=== PATIENT | female | born 1995 | race African-American/Black ===

== ENCOUNTER 2016-11-17 16:16 | Emergency (ER) | payer OTHER, SELFPAY ==
[~2016-11-17] VITALS: Ht 162.6 cm; Wt 46.7 kg
[2016-11-17 16:26] VITALS: BP 107/72
[2016-11-17 17:02] LABS: APPEARANCE,URINE CLEAR; KETONES,URINE NEGATIVE (NEGATIVE); LEUKOCYTE ESTERASE ,URINE 3+ (NEGATIVE); NITRITE,URINE NEGATIVE (NEGATIVE); PH,URINE 5 (4.5-8.0); PROTEIN,URINE 3+ (NEGATIVE); UROBILINOGEN,URINE NORMAL MG/DL (0.0-1.0)
[2016-11-17 17:10] LABS: BACTERIA,URINE FEW /HPF; SQUAMOUS EPITHELIAL CELL,UR FEW /LPF (NONE/OCC)
--- NOTE | 2016-11-17 17:31 | Emergency Room Report ---
History of Present Illness General Chief Complaint: Female Urogenital Problems Source: Patient Present Illness HPI 21 YO Female presents to the ED C/O dysuria and frequency x 2 days. no fevers, chills, vaginal d/c, lesions, denies , denies N/V. PT. denies new sexual contacts and states she just had normal pap smear and STD testing 3 weeks ago. denies abdominal pain or tenderness, denies constipation, diarrhea, or rashes. pt. reports dysuria that radiates up into the lower abdomen only with urination. denies low back pain. Denies CP, Palpitations, LOC, AMS, dizziness, Changes in Vision, Sensation, paresthesias, or a sudden severe headache. Allergies: Coded Allergies: No Known Allergies (Unverified , 01/02/14) Patient History Past Medical History: see triage record Past Surgical History: none Pertinent Family History: none Last Menstrual Period: november 04 Now: No Reviewed Nursing Documentation: PMH: Agreed, PSxH: Agreed Nursing Documentation-PMH Past Medical History: No Stated History Review of Systems All Other Systems: negative except mentioned in HPI Physical Exam Vital Signs Date Time Temp Pulse Resp B/P Pulse Ox O2 Delivery O2 Flow Rate FiO2 11/17/16 16:26 97.9 73 18 107/72 98 Room Air Sp02 EP Interpretation: reviewed, normal General Appearance: no apparent distress, alert, GCS 15, non-toxic Head: normocephalic, atraumatic Eyes: bilateral eye PERRL, bilateral eye normal inspection ENT: hearing grossly normal, normal voice Neck: full range of motion Respiratory: lungs clear, normal breath sounds, speaking full sentences Cardiovascular #1: regular rate, rhythm, no edema Gastrointestinal: normal bowel sounds, non tender, soft, no guarding, no rebound Rectal: deferred Genitourinary: normal inspection, no CVA tenderness, adnexa normal, no vertebral tenderness Musculoskeletal: back normal, gait/station normal, normal range of motion Neurologic: alert, oriented x3, responsive, motor strength/tone normal, sensory intact, speech normal Psychiatric: judgement/insight normal, memory normal, mood/affect normal Skin: normal color, no rash, warm/dry, well hydrated Lymphatic: no adenopathy Medical Decision Making PA Attestation Dr. Blevins is my supervising Physician whom patient management has been discussed with. Diagnostic Impression: Primary Impression: Urinary tract infection Qualified Codes: N30.01 - Acute cystitis with hematuria ER Course 21 YO Female presents to the ED C/O dysuria and frequency x 2 days. no fevers, chills, vaginal d/c, lesions, denies , denies N/V. PT. denies new sexual contacts and states she just had normal pap smear and STD testing 3 weeks ago. denies abdominal pain or tenderness, denies constipation, diarrhea, or rashes. pt. reports dysuria that radiates up into the lower abdomen only with urination. denies low back pain. Denies CP, Palpitations, LOC, AMS, dizziness, Changes in Vision, Sensation, paresthesias, or a sudden severe headache. Ddx considered but are not limited to UTi , Pyelo, STI, Stone, Cystitis Vital signs: are WNL, pt. is afebrile H&PE are most consistent with UTI ORDERS: -Urine Hcg: negative - UA labs are attached : elevated WBC's, leuks, and bacteria present, indicates urinary infection. ED INTERVENTIONS: None required at this time. DISCHARGE: At this time pt. is stable for d/c to home. Will provide printed patient care instructions, and any necessary prescriptions. Care plan and follow up instructions have been discussed with the patient prior to discharge. Labs Test 11/17/16 16:30 Urine Color Yellow Urine Appearance Clear Urine pH 5 (4.5-8.0) Urine Specific [place] 1.020 (1.005-1.035) Urine Protein 3+ (NEGATIVE) Urine Glucose (UA) Negative (NEGATIVE) Urine Ketones Negative (NEGATIVE) Urine Occult Blood 5+ (NEGATIVE) Urine Nitrite Negative (NEGATIVE) Urine Bilirubin Negative (NEGATIVE) Urine Urobilinogen Normal MG/DL (0.0-1.0) Urine Leukocyte Esterase 3+ (NEGATIVE) Urine RBC 10-15 /HPF (0 - 2) Urine WBC 5-10 /HPF (0 - 2) Urine Squamous Epithelial Cells Few /LPF (NONE/OCC) Urine Bacteria Few /HPF (NONE) Urine HCG, Qualitative Negative Last Vital Signs Date Time Temp Pulse Resp B/P Pulse Ox O2 Delivery O2 Flow Rate FiO2 11/17/16 16:26 97.9 73 18 107/72 98 Room Air Disposition: HOME, SELF-CARE Condition: Stable Scripts Phenazopyridine Hcl* (PYRIDIUM*) 200 Mg Tablet 200 MG ORAL THREE TIMES A DAY for 3 Days, #9 TAB 0 Refills Prov: Lizz Raza 11/17/16 Nitrofurantoin Monohyd/M-Cryst* (MACROBID 100 MG*) 100 Mg Capsule 100 MG ORAL EVERY 12 HOURS for 5 Days, #10 CAP Prov: Lizz Raza 11/17/16 Patient Instructions: Urinary Tract Infection Additional Instructions: Take medications as directed. Follow up with a Primary Care Provider in 3-5 days, even if your symptoms have resolved. --Please review list of primary care clinics, if you do not already have a primary care provider Return sooner to ED if new symptoms occur, or current symptoms become worse. Pyridium will cause your urine to change color (Red/[place]), this is a normal side effect of the medication. - Please note that this Emergency Department Report was dictated using [email or web address] technology software, occasionally this can lead to erroneous entry secondary to interpretation by the dictation equipment. Lizz Raza Nov 17, 2016 17:31
[2016-11-17] MEDS ORDERED: PHENAZOPYRIDIN200 MG ORAL (17:32)
[2016-11-17] MEDS ORDERED: NITROFURANTOIN100 M2 ORAL (17:32)
[2016-11-17 17:37] VITALS: BP 107/72
== END 2016-11-17 17:37 | disposition home or self-care (01) ==
LOC: EMR 17:30
DX: N30.01 Acute cystitis with hematuria (principal)
CPT/HCPCS: 81003; 81025; 99284

== ENCOUNTER 2017-10-22 21:53 | Emergency (ER) | payer OTHER ==
[~2017-10-22] VITALS: Ht 157.5 cm; Wt 47.2 kg
[~2017-10-22 21:53] MED LIST: NITROFURANTOIN100 M2 ORAL; PHENAZOPYRIDIN200 MG ORAL
[2017-10-22] MEDS ORDERED: NKM (22:08)
--- NOTE | 2017-10-22 22:26 | Emergency Room Report ---
History of Present Illness General Chief Complaint: Vaginal Source: Patient Present Illness HPI Is a 22-year-old female with no past medical history. She presents with chief complaint of vaginal discharge. Onset this week. Has a slight odor. She is sexually active with no protection. One partner. No history of STDs. Nothing made it better. Nothing made it worse. Denies any douching. Allergies: Coded Allergies: No Known Allergies (Unverified , 01/02/14) Patient History Past Medical History: see triage record, old chart reviewed Past Surgical History: none Pertinent Family History: none Social History: Denies: smoking Last Menstrual Period: 10/15/17 Now: No : 0 Para: 0 Immunizations: other Reviewed Nursing Documentation: PMH: Agreed; PSxH: Agreed Nursing Documentation-PMH Past Medical History: No Stated History Review of Systems Eye: Denies: eye pain, blurred vision ENT: Denies: ear pain, nose congestion, throat swelling Respiratory: Denies: cough, shortness of breath Cardiovascular: Denies: chest pain, palpitations Gastrointestinal: Denies: abdominal pain, diarrhea, nausea, vomiting Genitourinary: Reports: discharge Musculoskeletal: Denies: back pain, joint pain Skin: Denies: rash Neurological: Denies: headache, numbness Endocrine: Denies: increased thirst, increased urine Hematologic/Lymphatic: Denies: easy bruising All Other Systems: negative except mentioned in HPI Physical Exam Vital Signs Date Time Temp Pulse Resp B/P (MAP) Pulse Ox O2 Delivery O2 Flow Rate FiO2 10/22/17 22:04 97.9 53 14 106/68 98 Room Air 97.9 vitals normal Sp02 EP Interpretation: reviewed, normal General Appearance: well appearing, no apparent distress, alert Head: normocephalic, atraumatic Eyes: bilateral eye PERRL, bilateral eye EOMI ENT: hearing grossly normal, normal pharynx Neck: full range of motion, supple, no meningismus Respiratory: chest non-tender, lungs clear, normal breath sounds Cardiovascular #1: regular rate, rhythm, no murmur Gastrointestinal: normal bowel sounds, non tender, no mass, no organomegaly, no bruit, non-distended Genitourinary: other - Pelvic exam done with female RN as stenciler. External exam normal. Internal exam showed whitish yellowish discharge. No cervical motion tenderness. No adnexal tenderness. Musculoskeletal: back normal, gait/station normal, normal range of motion Neurologic: alert, oriented x3 Psychiatric: mood/affect normal Skin: warm/dry Medical Decision Making Diagnostic Impression: Primary Impression: UTI (urinary tract infection) Qualified Codes: N30.00 - Acute cystitis without hematuria Additional Impression: Vaginitis Qualified Codes: N76.0 - Acute vaginitis ER Course Patient presents with a discharge. No evidence of any bacterial vaginosis or Trichomonas. I recommend yearly Pap smear. Also recommend outpatient testing for HIV, hepatitis, syphilis, and other STD. Last Vital Signs Date Time Temp Pulse Resp B/P (MAP) Pulse Ox O2 Delivery O2 Flow Rate FiO2 10/22/17 22:04 97.9 53 14 106/68 98 Room Air 97.9 Status: improved Disposition: HOME, SELF-CARE Condition: Stable Scripts Nitrofurantoin Monohyd/M-Cryst* (MACROBID 100 MG*) 100 Mg Capsule 100 MG ORAL EVERY 12 HOURS, #14 CAP Prov: ILSA LE M.D. 10/22/17 Additional Instructions: Follow-up with your family in 7 days. Return if symptom worsen. Recommend yearly Pap smear. Recommend outpatient testing for HIV, hepatitis, syphilis and other STDs. This can be done anonymously. ILSA LE M.D. Oct 22, 2017 22:25
[2017-10-22 22:43] LABS: APPEARANCE,URINE CLOUDY; BILIRUBIN, URINE NEGATIVE (NEGATIVE); COLOR,URINE PALE YELLOW; GLUCOSE, URINE (UA) NEGATIVE (NEGATIVE); KETONES,URINE NEGATIVE (NEGATIVE); LEUKOCYTE ESTERASE ,URINE 2+ (NEGATIVE); NITRITE,URINE NEGATIVE (NEGATIVE); PH,URINE 7 (4.5-8.0); PROTEIN,URINE NEGATIVE (NEGATIVE); UROBILINOGEN,URINE NORMAL MG/DL (0.0-1.0)
[2017-10-22 22:54] VITALS: BP 106/68
[2017-10-22] MEDS ORDERED: NITROFURANTOIN100 M2 ORAL (23:11)
== END 2017-10-22 22:35 | disposition home or self-care (01) ==
LOC: EMR 22:30
DX: N39.0 Urinary tract infection, site not specified (principal); N76.0 Acute vaginitis
CPT/HCPCS: 81003; 81025; 87210; 99283

== ENCOUNTER 2017-11-05 22:27 | Emergency (ER) | payer OTHER ==
[~2017-11-05] VITALS: Ht 162.6 cm; Wt 46.3 kg
[~2017-11-05 22:27] MED LIST changes: +NKM
[2017-11-05 23:02] LABS: APPEARANCE,URINE CLEAR; BILIRUBIN, URINE NEGATIVE (NEGATIVE); COLOR,URINE PALE YELLOW; GLUCOSE, URINE (UA) NEGATIVE (NEGATIVE); KETONES,URINE NEGATIVE (NEGATIVE); LEUKOCYTE ESTERASE ,URINE 3+ (NEGATIVE); NITRITE,URINE NEGATIVE (NEGATIVE); PH,URINE 6 (4.5-8.0); PROTEIN,URINE NEGATIVE (NEGATIVE); UROBILINOGEN,URINE NORMAL MG/DL (0.0-1.0)
--- NOTE | 2017-11-05 23:03 | Emergency Room Report ---
History of Present Illness General Chief Complaint: Female Urogenital Problems Source: Patient Present Illness HPI Is a 22-year-old female whom I saw about 2 weeks ago for urinary complaint. Diagnosed with UTI given prescription for Macrobid. She was doing well until 3 days ago. She had unprotected sexual intercourse and now with a whitish discharge and odor. Also with some pelvic pain. No fever chills but no nausea no vomiting. No longer having urinary complaint. Nothing made it better. Nothing made it worse. Allergies: Coded Allergies: No Known Allergies (Unverified , 11/05/17) Patient History Past Medical History: none, see triage record, old chart reviewed Past Surgical History: none Pertinent Family History: none Social History: Denies: smoking Last Menstrual Period: 10/13/2017 Now: No Immunizations: other Reviewed Nursing Documentation: PMH: Agreed; PSxH: Agreed Nursing Documentation-PMH Past Medical History: No Stated History Review of Systems Eye: Denies: eye pain, blurred vision ENT: Denies: ear pain, nose congestion, throat swelling Respiratory: Denies: cough, shortness of breath Cardiovascular: Denies: chest pain, palpitations Gastrointestinal: Denies: abdominal pain, diarrhea, nausea, vomiting Genitourinary: Reports: discharge Musculoskeletal: Denies: back pain, joint pain Skin: Denies: rash Neurological: Denies: headache, numbness Endocrine: Denies: increased thirst, increased urine Hematologic/Lymphatic: Denies: easy bruising All Other Systems: negative except mentioned in HPI Physical Exam Vital Signs Date Time Temp Pulse Resp B/P (MAP) Pulse Ox O2 Delivery O2 Flow Rate FiO2 11/05/17 22:32 98.2 63 16 104/60 98 Room Air 98.2 vitals normal Sp02 EP Interpretation: reviewed, normal General Appearance: well appearing, no apparent distress, alert Head: normocephalic, atraumatic Eyes: bilateral eye PERRL, bilateral eye EOMI ENT: hearing grossly normal, normal pharynx Neck: full range of motion, supple, no meningismus Respiratory: chest non-tender, lungs clear, normal breath sounds Cardiovascular #1: regular rate, rhythm, no murmur Gastrointestinal: normal bowel sounds, non tender, no mass, no organomegaly, no bruit, non-distended Genitourinary: other - Pelvic exam done with Delores, RN, as concrete laborer. External exam normal. Internal exam show whitish discharge. No cervical motion tenderness. Musculoskeletal: back normal, gait/station normal, normal range of motion Neurologic: alert, oriented x3 Psychiatric: mood/affect normal Skin: warm/dry Medical Decision Making Diagnostic Impression: Primary Impression: Bacterial vaginosis Additional Impression: Kiara vaginitis ER Course Patient with Dr. dumont. No evidence of ectopic. No evidence of acute UTI. We'll discharge home. Last Vital Signs Date Time Temp Pulse Resp B/P (MAP) Pulse Ox O2 Delivery O2 Flow Rate FiO2 11/05/17 22:32 98.2 63 16 104/60 98 Room Air 98.2 Status: unchanged Disposition: HOME, SELF-CARE Condition: Stable Scripts Fluconazole (FLUCONAZOLE) 100 Mg Tablet 100 MG ORAL DAILY, #1 TAB 0 Refills Prov: ILSA LE M.D. 11/05/17 Metronidazole* (FLAGYL*) 500 Mg Tablet 500 MG ORAL BID, #14 TAB Prov: ILSA LE M.D. 11/05/17 Patient Instructions: Vaginitis Additional Instructions: Follow-up with your doctor in 7 days. Return if symptom worsen. ILSA LE M.D. Nov 05, 2017 23:03
[2017-11-05] MEDS ORDERED: METRONIDAZOLE500 MG ORAL (23:46)
[2017-11-05] MEDS ORDERED: FLUCONAZOLE100 MG ORAL (23:47)
[2017-11-06] VITALS: BP 102/62
[2017-11-06 00:09] VITALS: BP 102/62
== END 2017-11-06 00:17 | disposition home or self-care (01) ==
LOC: EMR 22:40
DX: N76.0 Acute vaginitis (principal); B37.3 Candidiasis of vulva and vagina
CPT/HCPCS: 81003; 81025; 87210; 99283

== ENCOUNTER 2018-05-21 15:10 | Emergency (ER) | payer OTHER ==
[~2018-05-21] VITALS: Ht 160 cm; Wt 46.3 kg
[~2018-05-21 15:10] MED LIST changes: +FLUCONAZOLE100 MG ORAL; +METRONIDAZOLE500 MG ORAL
[2018-05-21 15:15] VITALS: BP 115/70
[2018-05-21] MEDS ORDERED: NKM (15:17)
--- NOTE | 2018-05-21 15:23 | NUR ---
ED Nurse Note: Pt came in due to heaviness in her medial chest on and off x 3 days. Pt states she has this feeling when she was a little girl. No respiratory distress. Pt is AAOx4 ,ambulates with steady gait. VSS. Mother at the bed side.
--- NOTE | 2018-05-21 15:39 | Emergency Room Report ---
History of Present Illness General Chief Complaint: General Complaint Source: Patient Present Illness HPI 22-year-old female patient presents the ER complaining of substernal chest pain for the past 3 days. Reports pain is worse with deep inspiration. Denies history of AL or heart attack. Denies history of asthma. Denies recent injury or trauma. Reports dry cough during this time. Reports no hemoptysis. States not taking medication for relief of symptoms. Reports history of similar symptoms in the past, states symptoms have been present since childhood. Reports history of dizziness and fainting episodes, denies symptoms currently. Denies history of cardiac workup or following up with primary care provider or packer inspector. Denies other aggravating or relieving factors. Denies smoking cigarettes. Denies recent travel. Denies no recent periods of immobilization. States does not take control medication. Denies calf pain. Denies neck pain. Denies recent travel. Denies drug use. Allergies: Coded Allergies: No Known Allergies (Unverified , 11/05/17) Patient History Past Medical History: see triage record Last Menstrual Period: 05/17/18 Reviewed Nursing Documentation: PMH: Agreed; PSxH: Agreed Nursing Documentation-PMH Past Medical History: No Stated History Review of Systems All Other Systems: negative except mentioned in HPI Physical Exam Vital Signs Date Time Temp Pulse Resp B/P (MAP) Pulse Ox O2 Delivery O2 Flow Rate FiO2 05/21/18 15:15 98.1 57 18 115/70 100 Room Air Sp02 EP Interpretation: reviewed, normal General Appearance: well appearing, no apparent distress, alert, GCS 15, non- toxic Head: normocephalic, atraumatic Eyes: bilateral eye normal inspection, bilateral eye PERRL ENT: hearing grossly normal, normal pharynx, no angioedema, normal voice, uvula midline, moist mucus membranes Neck: full range of motion Respiratory: lungs clear, normal breath sounds, no rhonchi, no respiratory distress, no accessory muscle use, no wheezing, speaking full sentences Cardiovascular #1: regular rate, rhythm, no edema Gastrointestinal: non tender, soft, no mass, non-distended, no guarding, no rebound Genitourinary: no CVA tenderness Musculoskeletal: back normal, digits/nails normal, gait/station normal, normal range of motion, non-tender, no calf tenderness, Praveena's Sign negative Neurologic: alert, oriented x3, responsive, motor strength/tone normal, sensory intact Psychiatric: mood/affect normal Skin: no rash Medical Decision Making PA Attestation Dr. Florez is my supervising Physician whom patient management has been discussed with. Diagnostic Impression: Primary Impression: Nonspecific chest pain ER Course Pt presents to ED c/o chest pain. DDX considered but are not limited to influenza, viral URI, pneumonia, costochondritis, pericarditis, AL, CHF, pneumothorax, PE. VITAL SIGNS are WNL, patient is afebrile. ER COURSE: Provided with pain medication and IV fluids. Lungs clear to auscultation, no wheezes, rhonci or rales. patient afebrile. Patient does not require breathing treatment at this time. CBC and CMP unremarkable Troponin negative D-dimer WNL, low suspicion for PE. UA unremarkable, urine negative Discussed results with patient. CXR negative for acute disease. EKG shows no ST elevation or afib, small right bundle branch block noted in V2. Pain reproducible, CXR and EKG negative, low suspicion for cardiac etiology of symptoms, likely MSK in nature. Advised patient to followup with PCP and discuss referral to cardiology for stress testing and further evaluation. Symptomatic treatment. drink plenty of fluids. Followup with PCP for further treatment and/or referral as needed. ER precautions given. DISCHARGE: At this time pt is stable for d/c to home. Patient is resting comfortably, in no acute distress, nontoxic appearing. Patient to take medications as instructed Will provide with patient care instructions and any necessary prescriptions. Care plan and follow-up instructions provided. Patient instructed to follow-up with primary care provider in 3 - 5 days. Patient questions asked and answered. Patient reports understanding and agreement to treatment plan. ER precautions given. Patient instructed to return to ER immediately for any new or worsening of symptoms including but not limited to increasing SOB, persistent fever, intractable vomiting. - Please note that this Emergency Department Report was dictated using [employer] iron worker helper technology software, occasionally this can lead to erroneous entry secondary to interpretation by the dictation equipment. Labs Test 05/21/18 15:45 05/21/18 17:35 White Blood Count 7.1 K/UL (4.8-10.8) Red Blood Count 4.61 M/UL (4.20-5.40) Hemoglobin 11.7 G/DL (12.0-16.0) Hematocrit 36.0 % (37.0-47.0) Mean Corpuscular Volume 78 FL (80-99) Mean Corpuscular Hemoglobin 25.3 PG (27.0-31.0) Mean Corpuscular Hemoglobin Concent 32.4 G/DL (32.0-36.0) Red Cell Distribution Width 11.7 % (11.6-14.8) Platelet Count 287 K/UL (150-450) Mean Platelet Volume 5.6 FL (6.5-10.1) Neutrophils (%) (Auto) 50.8 % (45.0-75.0) Lymphocytes (%) (Auto) 34.3 % (20.0-45.0) Monocytes (%) (Auto) 11.7 % (1.0-10.0) Eosinophils (%) (Auto) 2.2 % (0.0-3.0) Basophils (%) (Auto) 1.1 % (0.0-2.0) D-Dimer 0.23 mg/L FEU (0.00-0.49) Sodium Level 140 MMOL/L (136-145) Potassium Level 3.2 MMOL/L (3.5-5.1) Chloride Level 103 MMOL/L (98-107) Carbon Dioxide Level 29 MMOL/L (21-32) Anion Gap 8 mmol/L (5-15) Blood Urea Nitrogen 14 mg/dL (7-18) Creatinine 0.8 MG/DL (0.55-1.30) Estimat Glomerular Filtration Rate > 60 mL/min (>60) Glucose Level 78 MG/DL (74-106) Calcium Level 9.5 MG/DL (8.5-10.1) Total Bilirubin 0.3 MG/DL (0.2-1.0) Aspartate Amino Transf (AST/SGOT) 14 U/L (15-37) Alanine Aminotransferase (ALT/SGPT) 15 U/L (12-78) Alkaline Phosphatase 45 U/L (46-116) Troponin I 0.000 ng/mL (0.000-0.056) Pro-B-Type Natriuretic Peptide 12 pg/mL (0-125) Total Protein 8.1 G/DL (6.4-8.2) Albumin 4.1 G/DL (3.4-5.0) Globulin 4.0 g/dL Albumin/Globulin Ratio 1.0 (1.0-2.7) Urine Color Pale yellow Urine Appearance Clear Urine pH 7 (4.5-8.0) Urine Specific [place] 1.010 (1.005-1.035) Urine Protein Negative (NEGATIVE) Urine Glucose (UA) Negative (NEGATIVE) Urine Ketones Negative (NEGATIVE) Urine Blood 2+ (NEGATIVE) Urine Nitrite Negative (NEGATIVE) Urine Bilirubin Negative (NEGATIVE) Urine Urobilinogen Normal MG/DL (0.0-1.0) Urine Leukocyte Esterase 1+ (NEGATIVE) Urine RBC 0-2 /HPF (0 - 2) Urine WBC 2-4 /HPF (0 - 2) Urine Squamous Epithelial Cells Few /LPF (NONE/OCC) Urine Bacteria Few /HPF (NONE) Urine HCG, Qualitative Negative (NEGATIVE) EKG Diagnostic Results Rate: bradycardiac Rhythm: NSR ST Segments: no acute changes Other Impression Right bundle branch block ASA given to the pt in ED: No PA Scribe Text Jan Hurtado PA-C Rhythm Strip Diag. Results EP Interpretation: yes Rate: 53 Rhythm: NSR, no PVC's, no ectopy PA Scribe Text Jan Hurtado PA-C Chest X-Ray Diagnostic Results Chest X-Ray Diagnostic Results : Chest X-Ray Ordered: Yes # of Views/Limited/Complete: 1 View Indication: Chest Pain EP Interpretation: Yes PA Xray: Interpretation reviewed, by supervising MD, and agrees with findings. Interpretation: no consolidation, no effusion, no pneumothorax, no acute cardiopulmonary disease Impression: No acute disease PA Scribe Text Jan Hurtado PA-C Last Vital Signs Date Time Temp Pulse Resp B/P (MAP) Pulse Ox O2 Delivery O2 Flow Rate FiO2 05/21/18 15:23 57 18 Room Air 05/21/18 15:15 98.1 115/70 100 Status: improved Disposition: HOME, SELF-CARE Condition: Stable Scripts Ibuprofen* (MOTRIN*) 600 Mg Tablet 600 MG ORAL Q8H PRN for For Pain, #30 TAB 0 Refills Prov: Sd Hurtado 05/21/18 Patient Instructions: Nonspecific Chest Pain, [id number] Additional Instructions: Followup with primary care provider in 3 -5 days. Follow-up with packer inspector discussed need for cardiac stress testing and further evaluation and treatment. Take medications as directed. Take Tylenol or Motrin for pain symptoms. Patient questions asked and answered. ER precautions given, patient instructed to return to ER immediately for any new or worsening of symptoms. Sd Hurtado May 21, 2018 15:39
[2018-05-21] MEDS ORDERED: Acetaminophen 500mg (ES) tab ORAL ONE (15:45)
--- NOTE | 2018-05-21 15:52 | NUR ---
ED Nurse Note: Blood specimen collected and sent.
--- NOTE | 2018-05-21 16:00 | NUR ---
Note selena in EDM - 05/21/18 at 1745 by BETSY ED Nurse Note: Pt unable to giove urine sample. Will try again later.
[2018-05-21 16:35] LABS: BASOPHILS % (AUTO) 1.1 % (0.0-2.0); EOSINOPHILS % (AUTO) 2.2 % (0.0-3.0); HEMOGLOBIN 11.7 G/DL (12.0-16.0); LYMPHOCYTES % (AUTO) 34.3 % (20.0-45.0); MEAN CORPUSCULAR VOLUME 78 FL (80-99); MONOCYTES % (AUTO) 11.7 % (1.0-10.0); NEUTROPHILS % (AUTO) 50.8 % (45.0-75.0); PLATELET COUNT 287 K/UL (150-450); RED BLOOD COUNT 4.61 M/UL (4.20-5.40); RED CELL DISTRIBUTION WIDTH 11.7 % (11.6-14.8); WHITE BLOOD COUNT 7.1 K/UL (4.8-10.8)
--- NOTE | 2018-05-21 16:35 | Diagnostic Imaging Report ---
Indication: Chest pain Technique: One view of the chest Comparison: 01/02/2014 Findings: Lungs and pleural spaces are clear. Heart size is normal . No significant interim change Impression: No acute process
[2018-05-21 16:46] LABS: ANION GAP 8 mmol/L (5-15); BLOOD UREA NITROGEN 14 mg/dL (7-18); CALCIUM 9.5 MG/DL (8.5-10.1); CARBON DIOXIDE 29 MMOL/L (21-32); CHLORIDE 103 MMOL/L (98-107); CREATININE 0.8 MG/DL (0.55-1.30); POTASSIUM 3.2 MMOL/L (3.5-5.1); SODIUM 140 MMOL/L (136-145)
[2018-05-21 16:55] LABS: ALANINE AMINOTRANSFERASE 15 U/L (12-78); ALBUMIN 4.1 G/DL (3.4-5.0); ALKALINE PHOSPHATASE 45 U/L (46-116); ASPARTATE AMINO TRANSFERASE 14 U/L (15-37); BILIRUBIN,TOTAL 0.3 MG/DL (0.2-1.0)
--- NOTE | 2018-05-21 17:15 | NUR ---
ED Nurse Note: Urine specimen sent.
--- NOTE | 2018-05-21 17:44 | NUR ---
Mendoza walters in EDM - 05/21/18 at 1745 by BETSY ED Nurse Note: Pt still unable to provide urine at this time.
[2018-05-21 18:13] LABS: APPEARANCE,URINE CLEAR; BILIRUBIN, URINE NEGATIVE (NEGATIVE); COLOR,URINE PALE YELLOW; GLUCOSE, URINE (UA) NEGATIVE (NEGATIVE); KETONES,URINE NEGATIVE (NEGATIVE); LEUKOCYTE ESTERASE ,URINE 1+ (NEGATIVE); NITRITE,URINE NEGATIVE (NEGATIVE); PH,URINE 7 (4.5-8.0); PROTEIN,URINE NEGATIVE (NEGATIVE); UROBILINOGEN,URINE NORMAL MG/DL (0.0-1.0)
[2018-05-21] MEDS ORDERED: IBUPROFEN600 MG ORAL (18:26)
[2018-05-21 18:48] VITALS: BP 122/88
--- NOTE | 2018-05-21 18:48 | NUR ---
ED Nurse Note: Pt cleared by Health Care Provider for discharge. DC instructions/prescriptions given and explained to pt and verbalized understanding of teachings. All medical devices such as ID band/IV removed. Pt AAO x4, ambulatory and left with all personal belongings. Pt left with her family member.
--- NOTE | 2018-05-24 16:19 | Cardiology Report ---
APPROVED REPORT EKG Measurement Heart [id number] Sinus bradycardia Incomplete RBBB Nonspecific T wave abnormality Abnormal ECG
== END 2018-05-21 18:48 | disposition home or self-care (01) ==
LOC: EMR 17:06
DX: R07.9 Chest pain, unspecified (principal)
CPT/HCPCS: 36415; 71045; 80053; 81003; 81025; 83880; 84484; 85025; 85379; 93005; 96360; 99284

== ENCOUNTER 2019-05-21 05:42 | Emergency (ER) | payer OTHER ==
[~2019-05-21] VITALS: Ht 157.5 cm; Wt 46.7 kg
[~2019-05-21 05:42] MED LIST changes: +IBUPROFEN600 MG ORAL
--- NOTE | 2019-05-21 05:58 | NUR ---
ED Nurse Note: pt presents to ED c/o throat tightness and chest "heaviness" that started earlier this morning. pt also reports abd px and N/V. pt states that she is "paranoid" because she shared a drink with a stranger and is worried about kris something
[2019-05-21 06:01] VITALS: BP 112/76
--- NOTE | 2019-05-21 06:09 | Emergency Room Report ---
History of Present Illness General Chief Complaint: General Complaint Source: Patient Present Illness [facility] This a 23-year-old female with no past medical history. She presents with chief complaint of sore throat and palpitation. Onset was acute and occurred about an hour prior to arrival. She says she felt like her throat closing off. She also felt her heart beating fast. She then freaked out and thought that she may have caught something from drinking from a cup that belonged to someone else. She denies any fever chills but no nausea no vomiting. No fever chills but nothing made it better. Nothing made it worse. Denies any other complaint. Allergies: Coded Allergies: No Known Allergies (Unverified , 11/05/17) Patient History Past Medical History: see triage record, old chart reviewed Past Surgical History: none Pertinent Family History: none Social History: Denies: smoking Last Menstrual Period: 05/15/19 Now: No : 0 Para: 0 Immunizations: other Reviewed Nursing Documentation: PMH: Agreed; PSxH: Agreed Nursing Documentation-PMH Past Medical History: No History, Except For Hx Asthma: Yes Review of Systems Eye: Denies: eye pain, blurred vision ENT: Denies: ear pain, nose congestion, throat swelling Respiratory: Denies: cough, shortness of breath Cardiovascular: Reports: palpitations; Denies: chest pain Gastrointestinal: Denies: abdominal pain, diarrhea, nausea, vomiting Musculoskeletal: Denies: back pain, joint pain Skin: Denies: rash Neurological: Denies: headache, numbness Endocrine: Denies: increased thirst, increased urine Hematologic/Lymphatic: Denies: easy bruising All Other Systems: negative except mentioned in HPI Physical Exam Vital Signs Date Time Temp Pulse Resp B/P (MAP) Pulse Ox O2 Delivery O2 Flow Rate FiO2 05/21/19 05:48 98.2 63 16 112/76 (88) 99 Room Air Vitals normal Sp02 EP Interpretation: reviewed, normal General Appearance: well appearing, no apparent distress, alert Head: normocephalic, atraumatic Eyes: bilateral eye PERRL, bilateral eye EOMI ENT: hearing grossly normal, normal pharynx Neck: full range of motion, supple, no meningismus Respiratory: chest non-tender, lungs clear, normal breath sounds Cardiovascular #1: regular rate, rhythm, no murmur Gastrointestinal: normal bowel sounds, non tender, no mass, no organomegaly, no bruit, non-distended Musculoskeletal: back normal, normal range of motion, gait/station normal Psychiatric: mood/affect normal Medical Decision Making Diagnostic Impression: Primary Impression: Chest pain Qualified Codes: R07.9 - Chest pain, unspecified ER Course Patient with symptoms of throat closing and chest pressure and palpitation. I think this is more anxiety related. She looks well. EKG normal. Patient will be discharged with reassurance. Last Vital Signs Date Time Temp Pulse Resp B/P (MAP) Pulse Ox O2 Delivery O2 Flow Rate FiO2 05/21/19 06:01 63 16 Room Air 05/21/19 06:01 98.2 112/76 99 Status: improved Disposition: HOME, SELF-CARE Condition: Stable Additional Instructions: Follow-up with your doctor in 7 days. Return if symptoms worsen. Leonides Vaca MD May 21, 2019 06:09
[2019-05-21 06:15] VITALS: BP 112/76
--- NOTE | 2019-05-21 06:15 | NUR ---
ED Nurse Note: Pt cleared by health care Provider for discharge. DC instructions were given and explained to pt and verbalized understanding of teachings. All medical devices such as ID band removed. Pt is AAO x4, ambulatory and left with all personal belongings.
== END 2019-05-21 06:15 | disposition home or self-care (01) ==
LOC: EMR 06:10
DX: R07.9 Chest pain, unspecified (principal); J45.909 Unspecified asthma, uncomplicated
CPT/HCPCS: 93005; 99283

== ENCOUNTER 2019-10-02 11:10 | Emergency (ER) | payer OTHER ==
[~2019-10-02] VITALS: Ht 160 cm; Wt 46.3 kg
[2019-10-02 11:22] VITALS: BP 111/71
--- NOTE | 2019-10-02 11:22 | NUR ---
ED Nurse Note: Patient walked in to ED from home c/o nausea x1 month. Pt also reports missed menstrual period, feeling lethargic and pain during intercouse. LMP was 08/23/19. No SOB. VSS.
--- NOTE | 2019-10-02 11:30 | NUR ---
ED Nurse Note: Urine sent to lab.
--- NOTE | 2019-10-02 11:35 | Emergency Room Report ---
History of Present Illness General Chief Complaint: Female Urogenital Problems Source: Patient Present Illness HPI 24-year-old female no past medical history no surgical history presents with dysuria x4 days, she initially had a burning sensation when urinating resolved now she has burning with sexual intercourse, she denies any new lesions, no vaginal discharge she denies any current pain no fevers or chills, no known aggravating relieving factors severity is mild, intermittent Allergies: Coded Allergies: No Known Allergies (Unverified , 11/05/17) COVID-19 Screening Contact w/high risk pt: No Recent Travel to affected area: No Experienced COVID-19 symptoms?: No COVID-19 Testing performed NURSERY NURSE: No Patient History Past Medical History: see triage record Last Menstrual Period: 08/23/19 : 0 Reviewed Nursing Documentation: PMH: Agreed; PSxH: Agreed Nursing Documentation-PMH Past Medical History: No Stated History Hx Asthma: Yes Review of Systems All Other Systems: negative except mentioned in HPI Physical Exam Vital Signs Date Time Temp Pulse Resp B/P (MAP) Pulse Ox O2 Delivery O2 Flow Rate FiO2 10/02/19 11:15 98.4 70 18 111/71 (84) 97 Room Air General Appearance: well appearing, no apparent distress Head: normocephalic, atraumatic ENT: hearing grossly normal, normal voice Neck: full range of motion, supple Respiratory: no respiratory distress, speaking full sentences Gastrointestinal: non tender, soft Genitourinary: no CVA tenderness Neurologic: alert, normal gait Psychiatric: mood/affect normal Skin: no rash Medical Decision Making Diagnostic Impression: Primary Impression: Dysuria Additional Impression: UTI (urinary tract infection) Qualified Codes: N30.00 - Acute cystitis without hematuria ER Course 24-year-old female presents with dysuria is dyspareunia patient denies any pain during sex however she states that she has a burning sensation she also is a burning sensation when she urinates differential diagnosis includes UTI she also states she missed a period. Patient opted not to have a vaginal exam. She wants us see what the urine shows as well as gonorrhea chlamydia Patient with UTI, will start Keflex, strict return cautions discussed, patient will be notified if gonorrhea including results are positive Laboratory Tests Test 10/02/19 11:25 Urine Color Pale yellow Urine Appearance Clear Urine pH 5 (4.5-8.0) Urine Specific [place] 1.020 (1.005-1.035) Urine Protein 1+ (NEGATIVE) H Urine Glucose (UA) Negative (NEGATIVE) Urine Ketones Negative (NEGATIVE) Urine Blood 1+ (NEGATIVE) H Urine Nitrite Negative (NEGATIVE) Urine Bilirubin Negative (NEGATIVE) Urine Urobilinogen Normal MG/DL (0.0-1.0) Urine Leukocyte Esterase 3+ (NEGATIVE) H Urine RBC 2-4 /HPF (0 - 2) H Urine WBC 5-10 /HPF (0 - 2) H Urine Squamous Epithelial Cells Moderate /LPF (NONE/OCC) H Urine Bacteria Moderate /HPF (NONE) H Urine Mucus Few /LPF (NONE/OCC) H Urine HCG, Qualitative Negative (NEGATIVE) Chlamydia trachomatis RNA Pending Neisseria gonorrhoeae RNA Pending Last Vital Signs Date Time Temp Pulse Resp B/P (MAP) Pulse Ox O2 Delivery O2 Flow Rate FiO2 10/02/19 11:15 98.4 70 18 111/71 (84) 97 Room Air Disposition: HOME, SELF-CARE Condition: Stable Scripts Cephalexin* (KEFLEX*) 500 Mg Tablet 500 MG ORAL EVERY 6 HOURS, #28 CAP Prov: Troy Bower MD 10/02/19 Referrals: [facility] Patient Instructions: Urinary Tract Infection Additional Instructions: The patient was provided with discharge instructions, notified to follow-up with a primary care doctor and or specialist in the next 24-48 hours, and to return to the ED if they have worsening of their symptoms. Please note that this report is being documented using [employer] technology. This can lead to erroneous entry secondary to incorrect interpretation by the dictating instrument. Troy Bower MD Oct 02, 2019 11:35
[2019-10-02 11:45] LABS: APPEARANCE,URINE CLEAR; BILIRUBIN, URINE NEGATIVE (NEGATIVE); COLOR,URINE PALE YELLOW; GLUCOSE, URINE (UA) NEGATIVE (NEGATIVE); KETONES,URINE NEGATIVE (NEGATIVE); LEUKOCYTE ESTERASE ,URINE 3+ (NEGATIVE); NITRITE,URINE NEGATIVE (NEGATIVE); PH,URINE 5 (4.5-8.0); PROTEIN,URINE 1+ (NEGATIVE); UROBILINOGEN,URINE NORMAL MG/DL (0.0-1.0)
[2019-10-02] MEDS ORDERED: CEPHALEXIN500 M1 ORAL (12:01)
[2019-10-02 12:03] VITALS: BP 120/75
--- NOTE | 2019-10-02 12:03 | NUR ---
ER DISCHARGE NOTE: Patient is cleared to be discharged per ERMD, pt is aox4, on room air, with stable vital signs. pt was given dc and prescription instructions, pt was able to verbalize understanding, pt id band removed without complications. pt is able to ambulate with steady gait. pt took all belongings.
== END 2019-10-02 12:03 | disposition home or self-care (01) ==
LOC: EMR 12:00
DX: N30.00 Acute cystitis without hematuria (principal); R30.0 Dysuria
CPT/HCPCS: 81003; 81025; 87086; 87491; 87590; 99283

== ENCOUNTER 2019-11-18 15:32 | Emergency (ER) | payer OTHER ==
[~2019-11-18] VITALS: Ht 160 cm; Wt 46.3 kg
[~2019-11-18 15:32] MED LIST changes: +CEPHALEXIN500 M1 ORAL
--- NOTE | 2019-11-18 15:49 | NUR ---
ED Nurse Note: Pt ambulated to ED d/t fatigue and vomiting, vomited x 3 today, going on since october per pt. Per pt, she was been diagnosed with UTI and was taking keflex as her rx and then she started feeling the symptoms since the course of tx. LMP September. Pt is AOx4, VSS, on RA. afebrile on triage.
[2019-11-18 15:50] VITALS: BP 116/72
[2019-11-18] MEDS ORDERED: Ketorolac 30mg Inj IV ONE (16:15)
--- NOTE | 2019-11-18 16:35 | NUR ---
ED Nurse Note:blood and urine sent to labs, pt. received IV fluids and meds
[2019-11-18 16:56] LABS: APPEARANCE,URINE SLIGHTLY CLOUDY; BILIRUBIN, URINE NEGATIVE (NEGATIVE); COLOR,URINE AMBER; GLUCOSE, URINE (UA) NEGATIVE (NEGATIVE); KETONES,URINE 1+ (NEGATIVE); LEUKOCYTE ESTERASE ,URINE 1+ (NEGATIVE); NITRITE,URINE NEGATIVE (NEGATIVE); PH,URINE 5 (4.5-8.0); PROTEIN,URINE 1+ (NEGATIVE); UROBILINOGEN,URINE NORMAL MG/DL (0.0-1.0)
[2019-11-18 17:05] LABS: BASOPHILS % (AUTO) 1.5 % (0.0-2.0); HEMOGLOBIN 11.6 G/DL (12.0-16.0); LYMPHOCYTES % (AUTO) 23.6 % (20.0-45.0); MEAN CORPUSCULAR VOLUME 78 FL (80-99); MONOCYTES % (AUTO) 7.1 % (1.0-10.0); NEUTROPHILS % (AUTO) 66.8 % (45.0-75.0); PLATELET COUNT 254 K/UL (150-450); RED BLOOD COUNT 4.51 M/UL (4.20-5.40); WHITE BLOOD COUNT 6.4 K/UL (4.8-10.8)
[2019-11-18 17:07] LABS: ANION GAP 9 mmol/L (5-15); BLOOD UREA NITROGEN 10 mg/dL (7-18); CALCIUM 9.8 MG/DL (8.5-10.1); CARBON DIOXIDE 26 MMOL/L (21-32); CHLORIDE 100 MMOL/L (98-107); CREATININE 0.8 MG/DL (0.55-1.30); POTASSIUM 3.5 MMOL/L (3.5-5.1); SODIUM 135 MMOL/L (136-145)
[2019-11-18 17:13] LABS: ALANINE AMINOTRANSFERASE 17 U/L (12-78); ALBUMIN 4.2 G/DL (3.4-5.0); ALKALINE PHOSPHATASE 26 U/L (46-116); ASPARTATE AMINO TRANSFERASE 14 U/L (15-37); BILIRUBIN,TOTAL 0.5 MG/DL (0.2-1.0)
--- NOTE | 2019-11-18 18:05 | NUR ---
ED Nurse Note:U/S being done in the room
--- NOTE | 2019-11-18 18:39 | Diagnostic Imaging Report ---
EXAM: US First Trimester , Transabdominal and Transvaginal CLINICAL HISTORY: PAIN TECHNIQUE: Real-time transabdominal and transvaginal obstetrical ultrasound of the maternal pelvis and a first trimester with image documentation. Transvaginal imaging was used for better evaluation of the fetus and adnexa. COMPARISON: None. FINDINGS: Gestation: Single viable intrauterine gestation is noted corresponding to a gestational age of 10 weeks 6 days. heart rate is 157 bpm. Placenta/amniotic fluid: Cannot be adequately evaluated due to the early gestational age. Uterus/cervix: Cervix measures 3.1 cm and is closed. Ovaries are not visualized due to bowel gas. No myometrial mass. Ovaries: See above. Free fluid: No free fluid. IMPRESSION: 1. Single viable intrauterine gestation corresponding to a gestational age of 10 weeks 6 days. 2. heart rate is 157 bpm. 3. Cervix is closed. 4. No free fluid.
--- NOTE | 2019-11-18 18:44 | Diagnostic Imaging Report ---
EXAM: US , Transvaginal CLINICAL HISTORY: PAIN TECHNIQUE: Real-time transvaginal obstetrical ultrasound of the maternal pelvis and a first trimester with image documentation. Transvaginal imaging was used for better evaluation of the fetus and adnexa. COMPARISON: None. FINDINGS: Gestation: Single viable intrauterine gestation is noted corresponding to gestational age of 10 weeks 6 days. heart rate is 157 bpm. Placenta/amniotic fluid: Cannot be adequately evaluated due to the early gestational age. Uterus/cervix: Cervix measures 3.1 cm and is closed. The uterus measures 11.3 x 6.8 x 8.3 cm in extent. No myometrial mass. Ovaries: Neither ovary is visualized due to bowel gas. No mass. Free fluid: No free fluid. IMPRESSION: 1. Single viable intrauterine gestation corresponding to a gestational age of 10 weeks 6 days. 2. heart rate is 157 bpm. 3. Cervix is closed. 4. No free fluid. 5. Neither ovary is visualized due to bowel gas.
--- NOTE | 2019-11-18 18:46 | Emergency Room Report ---
History of Present Illness General Chief Complaint: General Complaint Source: Patient Present Illness HPI 24-year-old female with no known significant past medical history here complaining of intermittent nausea and vomiting for the past 2 months. Patient was seen [facility] end of September 2019 and was given Keflex for UTI however patient reported that after she took 3 doses she stopped taking it because she felt very nauseated and started vomiting. Patient reports that she stopped taking the antibiotic October 05 did not have any nausea vomiting point other 2 weeks and her nausea and vomiting started on October 20. Reports that her symptoms are due to being overly medicated as she reports that she still feels the medication in her mouth when she throws up. Denies any diarrhea and abdominal pain. Denies any vaginal bleeding spotting or UTI symptoms. Reports her last menstrual period was September 21, 2019 patient is sexually active. Patient does not take any control and does not use any protection. Has not taken medication for symptom relief. Denies any weight loss and history of abdominal surgery. Denies fever and chills. Denies tobacco smoke, alcohol use , marijuana use, and other drug use. Allergies: Coded Allergies: No Known Allergies (Unverified , 11/05/17) COVID-19 Screening Contact w/high risk pt: No Recent Travel to affected area: No Experienced COVID-19 symptoms?: No COVID-19 Testing performed POST OFFICE MANAGER: No Patient History Past Medical History: see triage record Past Surgical History: none Pertinent Family History: none Last Menstrual Period: September 21, 2019 Immunizations: UTD Reviewed Nursing Documentation: PMH: Agreed; PSxH: Agreed Nursing Documentation-PMH Past Medical History: No History, Except For Hx Asthma: Yes Review of Systems All Other Systems: negative except mentioned in HPI Physical Exam Vital Signs Date Time Temp Pulse Resp B/P (MAP) Pulse Ox O2 Delivery O2 Flow Rate FiO2 11/18/19 15:43 98.2 73 19 116/72 (87) 96 Room Air Sp02 EP Interpretation: reviewed, normal General Appearance: no apparent distress, alert, GCS 15, non-toxic Head: normocephalic, atraumatic ENT: hearing grossly normal, normal pharynx, no angioedema, normal voice Neck: full range of motion, supple/symm/no masses Respiratory: chest non-tender, lungs clear, normal breath sounds, no rhonchi, speaking full sentences Cardiovascular #1: regular rate, rhythm, no edema, no murmur Gastrointestinal: normal bowel sounds, non tender, soft, non-distended, no guarding, no rebound Rectal: deferred Genitourinary: no CVA tenderness Musculoskeletal: back normal Neurologic: alert, motor strength/tone normal, oriented x3, sensory intact, responsive, speech normal Psychiatric: judgement/insight normal, memory normal, mood/affect normal, no suicidal/homicidal ideation Skin: no rash Lymphatic: no adenopathy Medical Decision Making PA Attestation All diagnoses and treatment plans were reviewed and discussed with my supervising physician Dr. Linder Diagnostic Impression: Primary Impression: IUP (intrauterine ), incidental Additional Impression: UTI (urinary tract infection) ER Course 24-year-old female with no known significant past medical history here complaining of intermittent nausea and vomiting for the past 2 months. Patient was seen [facility] end of September 2019 and was given Keflex for UTI however patient reported that after she took 3 doses she stopped taking it because she felt very nauseated and started vomiting. Patient reports that she stopped taking the antibiotic October 05 did not have any nausea vomiting point other 2 weeks and her nausea and vomiting started on October 20. Reports that her symptoms are due to being overly medicated as she reports that she still feels the medication in her mouth when she throws up. Denies any diarrhea and abdominal pain. Denies any vaginal bleeding spotting or UTI symptoms. Reports her last menstrual period was September 21, 2019 patient is sexually active. Patient does not take any control and does not use any protection. Has not taken medication for symptom relief. Denies any weight loss and history of abdominal surgery. Denies fever and chills. Denies tobacco smoke, alcohol use , marijuana use, and other drug use. Ddx considered but are not limited to: UTI, pyelonephritis, urinary incontinence , prolapsed bladder, normal intrauterine , threatened , ectopic Vital signs: are WNL, pt. is afebrile H&PE are most consistent with: Incidental finding of IUP, UTI during ORDERS: UA, urine cx, urine , beta-hCG, CBC, CMP, type and screen, Diclegis, Macrobid as patient reported feeling nauseated with Keflex last time, vitamins ED INTERVENTIONS: NS bolus, Zofran, Pepcid Patient is here. Patient is and she did not want to be and reported emesis. Patient was in such disbelief. I reported to her that we are going to proceed with ultrasound and beta-hCG and patient is to follow-up with [facility]. Gave a list of women's clinics to follow-up with. Also nausea and vomiting secondary to being DISCHARGE: At this time pt. is stable for d/c to home. Will provide printed patient care instructions, and any necessary prescriptions. Care plan and follow up instructions have been discussed with the patient prior to discharge. Patient take medication as directed, follow-up with [facility] hours, if worsening symptoms return to the emergency room. CT/MRI/US Diagnostic Results CT/MRI/US Diagnostic Results : Imaging Test Ordered: OB ultrasound Impression FINDINGS: Gestation: Single viable intrauterine gestation is noted corresponding to gestational age of 10 weeks 6 days. heart rate is 157 bpm. Placenta/amniotic fluid: Cannot be adequately evaluated due to the early gestational age. Uterus/cervix: Cervix measures 3.1 cm and is closed. The uterus measures 11.3 x 6.8 x 8.3 cm in extent. No myometrial mass. Ovaries: Neither ovary is visualized due to bowel gas. No mass. Free fluid: No free fluid. IMPRESSION: 1. Single viable intrauterine gestation corresponding to a gestational age of 10 weeks 6 days. 2. heart rate is 157 bpm. 3. Cervix is closed. 4. No free fluid. 5. Neither ovary is visualized due to bowel gas. Last Vital Signs Date Time Temp Pulse Resp B/P (MAP) Pulse Ox O2 Delivery O2 Flow Rate FiO2 11/18/19 15:50 73 19 Room Air 11/18/19 15:50 98.2 116/72 96 Disposition: HOME, SELF-CARE Condition: Stable Scripts No.137/Iron/Folic Acd ( Vitamin Tablet) 1 Each Tablet 1 EACH PO DAILY, #30 TAB Prov: Jaret Diego 11/18/19 Doxylamine/Pyridoxine Hcl (CAMI MARIO 10-10 MG TABLET) 1 Each Tablet. 1 EACH PO QHS, #10 TAB Prov: Jaret Diego 11/18/19 Nitrofurantoin Monohyd/M-Cryst* (MACROBID 100 MG*) 100 Mg Capsule 100 MG ORAL EVERY 12 HOURS for 7 Days, #14 CAP Prov: Jaret Diego 11/18/19 Referrals: [facility],REFERRING (PCP) Patient Instructions: and Urinary Tract Infection Additional Instructions: Take medication as directed, follow-up with your [facility], if worsening symptoms return to the emergency room. Follow-up with [facility] recommended to be done in 24 to 48 hours. Jaret Diego Nov 18, 2019 18:46
[2019-11-18] MEDS ORDERED: DICLEGIS DR 101 EACH PO (18:48)
[2019-11-18] MEDS ORDERED: PRENATAL VITAM1 EA10 PO (18:48)
[2019-11-18] MEDS ORDERED: NITROFURANTOIN100 M2 ORAL (18:48)
--- NOTE | 2019-11-18 19:00 | NUR ---
ER DISCHARGE NOTE: Patient is cleared to be discharged per ERMD, pt is aox4, on room air, with stable vital signs. pt was given dc and prescription instructions, pt was able to verbalize understanding, pt id band and iv site removed without complications. pt is able to ambulate with steady gait. pt took all belongings.
[2019-11-18 19:09] VITALS: BP 116/72
== END 2019-11-18 19:13 | disposition home or self-care (01) ==
LOC: EMR 15:46
DX: O23.41 Unspecified infection of urinary tract in pregnancy, first trimester (principal); Z3A.10 10 weeks gestation of pregnancy
CPT/HCPCS: 36415; 76801; 76817; 80053; 80307; 81003; 81025; 83690; 84484; 84702; 85025; 85610; 85730; 86850; 86900; 86901; 96361; 96374; 99284; G0480; J2405; J7030

== ENCOUNTER 2020-03-26 13:49 | Emergency (ER) | payer MEDICAID, OTHER ==
[~2020-03-26] VITALS: Ht 162.6 cm; Wt 50.3 kg
[~2020-03-26 13:49] MED LIST changes: +DICLEGIS DR 101 EACH PO; +PRENATAL VITAM1 EA10 PO
[2020-03-26 14:00] VITALS: BP 107/71
--- NOTE | 2020-03-26 14:14 | Emergency Room Report ---
History of Present Illness General Chief Complaint: Vaginal Source: Patient Present Illness HPI Disclaimer: Please note that this report is being documented using [employer] technology. This can lead to erroneous entry secondary to incorrect interpretation by the dictating instrument. HPI: 24-year-old G1, P0 female approx 30 week gestation presents for abdominal cramping and vaginal discharge. Reports that she has not felt the baby move in 3 days. Has not followed up with [facility]. She states she was treated for chlamydia 1 month ago with oral medication. Reports 1 week of thick yellow vaginal discharge. Denies dysuria or hematuria. Denies flank pain fever or chills. Denies nausea or vomiting. States ultrasound she had our facility November is the only ultrasound she has had. Denies vaginal bleeding or leakage of fluid. PMH: Reviewed PSH: Reviewed Allergies: Denied Social Hx: Denied Allergies: Coded Allergies: No Known Allergies (Unverified , 11/05/17) COVID-19 Screening Contact w/high risk pt: No Recent Travel to affected area: No Experienced COVID-19 symptoms?: No COVID-19 Testing performed SALES SYSTEMS ENGINEER: No Patient History Now: Yes Nursing Documentation-PMH Past Medical History: No Stated History Hx Asthma: Yes Review of Systems All Other Systems: negative except mentioned in HPI Physical Exam Vital Signs Date Time Temp Pulse Resp B/P (MAP) Pulse Ox O2 Delivery O2 Flow Rate FiO2 03/26/20 13:58 98.2 65 20 107/71 (83) 98 Room Air General: Awake and alert, no acute distress HEENT: NC/AT. EOMI. Cardiovascular: RRR. S1 and S2 normal. No murmur appreciated Resp: Normal work of breathing. No cough, wheezing or crackles appreciated Abdomen: Gravid abdomen. Mild tenderness suprapubic region. : Normal-appearing external genitalia. Thick white discharge present. Pain on speculum insertion. No bleeding. Unable to visualize cervix. Skin: Intact. No abrasions, laceration or rash over the exposed skin MSK: Normal tone and bulk. Moving all extremities. No obvious deformity. Neuro: Awake and alert. Mentating appropriately. Medical Decision Making Diagnostic Impression: Primary Impression: Vaginal discharge Additional Impressions: Cervicitis UTI in Third trimester ER Course 24-year-old G1, P0 female approximate 30 weeks gestation presents for evaluation of vaginal discharge and abdominal cramping and decreased movements. Ultrasound shows a single intrauterine at estimated 27 weeks and 1 day with adequate heart tones.No clue cells, trichomonas or yeast was seen on wet mount. Urinalysis concerning for urinary tract infection. The patient was treated with cervicitis with ceftriaxone azithromycin and then continued on Keflex for treatment of UTI. Copies of her labs and imaging including discharge paperwork to follow-up with [facility] as soon as possible. Discussed reasons to return to the emergency department. She understands and agrees with this treatment plan. Laboratory Tests Test 03/26/20 14:30 03/26/20 15:00 White Blood Count 9.1 K/UL (4.8-10.8) Red Blood Count 4.42 M/UL (4.20-5.40) Hemoglobin 12.0 G/DL (12.0-16.0) Hematocrit 34.6 % (37.0-47.0) L Mean Corpuscular Volume 78 FL (80-99) L Mean Corpuscular Hemoglobin 27.0 PG (27.0-31.0) Mean Corpuscular Hemoglobin Concent 34.5 G/DL (32.0-36.0) Red Cell Distribution Width 13.4 % (11.6-14.8) Platelet Count 210 K/UL (150-450) Mean Platelet Volume 8.9 FL (6.5-10.1) Neutrophils (%) (Auto) 70.6 % (45.0-75.0) Lymphocytes (%) (Auto) 18.5 % (20.0-45.0) L Monocytes (%) (Auto) 8.8 % (1.0-10.0) Eosinophils (%) (Auto) 0.9 % (0.0-3.0) Basophils (%) (Auto) 1.2 % (0.0-2.0) Sodium Level 137 MMOL/L (136-145) Potassium Level 3.5 MMOL/L (3.5-5.1) Chloride Level 103 MMOL/L (98-107) Carbon Dioxide Level 25 MMOL/L (21-32) Anion Gap 9 mmol/L (5-15) Blood Urea Nitrogen 14 mg/dL (7-18) Creatinine 0.7 MG/DL (0.55-1.30) Estimated Glomerular Filtration Rate > 60 mL/min (>60) Glucose Level 79 MG/DL (74-106) Calcium Level 9.3 MG/DL (8.5-10.1) Total Bilirubin 0.3 MG/DL (0.2-1.0) Aspartate Amino Transferase (AST) 17 U/L (15-37) Alanine Aminotransferase (ALT) 15 U/L (12-78) Alkaline Phosphatase 57 U/L (46-116) Total Protein 7.8 G/DL (6.4-8.2) Albumin 3.3 G/DL (3.4-5.0) L Globulin 4.5 g/dL Albumin/Globulin Ratio 0.7 (1.0-2.7) L Lipase 152 U/L (73-393) Human Chorionic Gonadotropin, Quant 70189 mIU/mL (1-6) H Urine Color Yvette Urine Appearance Slightly cloudy Urine pH 6 (4.5-8.0) Urine Specific [place] 1.025 (1.005-1.035) Urine Protein 1+ (NEGATIVE) H Urine Glucose (UA) Negative (NEGATIVE) Urine Ketones 2+ (NEGATIVE) H Urine Blood Negative (NEGATIVE) Urine Nitrite Negative (NEGATIVE) Urine Bilirubin Negative (NEGATIVE) Urine Ictotest Negative (NEGATIVE) Urine Urobilinogen Normal MG/DL (0.0-1.0) Urine Leukocyte Esterase 2+ (NEGATIVE) H Urine RBC 0 /HPF (0 - 2) Urine WBC 15-20 /HPF (0 - 2) H Urine Squamous Epithelial Cells Moderate /LPF (NONE/OCC) H Urine Bacteria Moderate /HPF (NONE) H Microbiology Date/Time Source Procedure Growth Status 03/26/20 15:05 Vaginal Wet Prep - Final Complete Last Vital Signs Date Time Temp Pulse Resp B/P (MAP) Pulse Ox O2 Delivery O2 Flow Rate FiO2 03/26/20 13:58 98.2 65 20 107/71 (83) 98 Room Air Disposition: HOME, SELF-CARE Condition: Stable Scripts Cephalexin* (KEFLEX*) 500 Mg Capsule 500 MG ORAL EVERY 12 HOURS for 7 Days, #14 CAP 0 Refills Prov: Ramo Linder MD 03/26/20 Ramo Linder MD Mar 26, 2020 14:14
[2020-03-26 15:00] LABS: BASOPHILS % (AUTO) 1.2 % (0.0-2.0); EOSINOPHILS % (AUTO) 0.9 % (0.0-3.0); HEMATOCRIT 34.6 % (37.0-47.0); LYMPHOCYTES % (AUTO) 18.5 % (20.0-45.0); MEAN CORPUSCULAR VOLUME 78 FL (80-99); MONOCYTES % (AUTO) 8.8 % (1.0-10.0); NEUTROPHILS % (AUTO) 70.6 % (45.0-75.0); PLATELET COUNT 210 K/UL (150-450); RED BLOOD COUNT 4.42 M/UL (4.20-5.40); RED CELL DISTRIBUTION WIDTH 13.4 % (11.6-14.8); WHITE BLOOD COUNT 9.1 K/UL (4.8-10.8)
[2020-03-26 15:05] LABS: APPEARANCE,URINE SLIGHTLY CLOUDY; BILIRUBIN, URINE NEGATIVE (NEGATIVE); COLOR,URINE AMBER; GLUCOSE, URINE (UA) NEGATIVE (NEGATIVE); KETONES,URINE 2+ (NEGATIVE); LEUKOCYTE ESTERASE ,URINE 2+ (NEGATIVE); NITRITE,URINE NEGATIVE (NEGATIVE); PH,URINE 6 (4.5-8.0); PROTEIN,URINE 1+ (NEGATIVE); UROBILINOGEN,URINE NORMAL MG/DL (0.0-1.0)
[2020-03-26 15:12] LABS: ANION GAP 9 mmol/L (5-15); BLOOD UREA NITROGEN 14 mg/dL (7-18); CALCIUM 9.3 MG/DL (8.5-10.1); CARBON DIOXIDE 25 MMOL/L (21-32); CHLORIDE 103 MMOL/L (98-107); CREATININE 0.7 MG/DL (0.55-1.30); POTASSIUM 3.5 MMOL/L (3.5-5.1); SODIUM 137 MMOL/L (136-145)
[2020-03-26 15:16] LABS: ALANINE AMINOTRANSFERASE 15 U/L (12-78); ALBUMIN 3.3 G/DL (3.4-5.0); ALBUMIN/GLOBULIN RATIO 0.7 (1.0-2.7); ALKALINE PHOSPHATASE 57 U/L (46-116); ASPARTATE AMINO TRANSFERASE 17 U/L (15-37); BILIRUBIN,TOTAL 0.3 MG/DL (0.2-1.0)
--- NOTE | 2020-03-26 16:53 | Diagnostic Imaging Report ---
History: ABD PAIN Exam: US OB/ENDOVAG Comparison: FINDINGS: Single live intrauterine 27 weeks and 1 day with heart tones 152 bpm. Biparietal diameter 28 weeks and 0 days. Head circumference 27 weeks 2 days. Abdominal circumference 26 weeks 3 days. Femur length 26 weeks 6 days. Presentation cephalic. Placenta left lateral and appears within limits. NOVA 13.1 cm. Cervical length 4 cm with possible trace fluid at the endocervical canal not excluded. IMPRESSION: Single live intrauterine 27 weeks and 1 day with heart tones 152 bpm. Cervical length 4 cm with possible trace fluid at the endocervical canal not excluded.
--- NOTE | 2020-03-26 16:55 | Diagnostic Imaging Report ---
History: ABD PAIN Exam: US OB 2nd TRIMESTER Comparison: Comparison: FINDINGS: Single live intrauterine 27 weeks and 1 day with heart tones 152 bpm. Biparietal diameter 28 weeks and 0 days. Head circumference 27 weeks 2 days. Abdominal circumference 26 weeks 3 days. Femur length 26 weeks 6 days. Presentation cephalic. Placenta left lateral and appears within limits. NOVA 13.1 cm. Cervical length 4 cm with possible trace fluid at the endocervical canal not excluded. Study not performed for purposes of detail anatomic survey. IMPRESSION: Single live intrauterine 27 weeks and 1 day with heart tones 152 bpm. Cervical length 4 cm with possible trace fluid at the endocervical canal not excluded. Study not performed for purposes of detail anatomic survey. Anatomic survey can be obtained during routine OB ultrasound follow-up.
[2020-03-26] MEDS ORDERED: Azithromycin 250mg tab ORAL ONE (17:00)
[2020-03-26] MEDS ORDERED: Lidocaine 1% MPF 10mg/ml 5ml INJ ONE (17:00)
[2020-03-26] MEDS ORDERED: CEPHALEXIN500 MG ORAL (17:01)
[2020-03-26 17:31] VITALS: BP 110/74
== END 2020-03-26 17:31 | disposition home or self-care (01) ==
LOC: EMR 16:42
DX: O23.43 Unspecified infection of urinary tract in pregnancy, third trimester (principal); O23.513 Infections of cervix in pregnancy, third trimester; O26.893 Other specified pregnancy related conditions, third trimester; N89.8 Other specified noninflammatory disorders of vagina; J45.909 Unspecified asthma, uncomplicated; Z3A.27 27 weeks gestation of pregnancy
CPT/HCPCS: 36415; 76805; 76817; 80053; 81003; 83690; 84702; 85025; 87086; 87210; 96372; J0696; Q0144; Z7502; 99284

== ENCOUNTER 2020-04-09 20:03 | Emergency (ER) | payer MEDICAID ==
[~2020-04-09] VITALS: Ht 162.6 cm; Wt 50.3 kg
[~2020-04-09 20:03] MED LIST changes: +CEPHALEXIN500 MG ORAL
[2020-04-09 20:07] VITALS: BP 102/65
[2020-04-09 20:25] VITALS: BP 102/65
--- NOTE | 2020-04-09 20:27 | Emergency Room Report ---
History of Present Illness General Chief Complaint: Female Urogenital Problems Source: Patient Present Illness HPI Disclaimer: Please note that this report is being documented using [employer] technology. This can lead to erroneous entry secondary to incorrect interpretation by the dictating instrument. HPI: 24-year-old female with third trimester presents for evaluation of vaginal discharge. Seen might be 2 weeks ago who had a unremarkable ultrasound but treated for urinary tract infection with Keflex. Patient denies urinary discomfort, hematuria. She complains of a thin white vaginal discharge that she has had throughout her . Smear on last visit unremarkable. The patient was treated for cervicitis. She states her symptoms not change since finding out she was . She is scheduled to see her [employer]IP[employer] SE[employer] MACHINE OPERATOR on 04/11. Denies vaginal bleeding, loss of fluids. Reports good movements. No other complaints. PMH: Reviewed PSH: Reviewed Allergies: Reviewed Social Hx: Reviewed Allergies: Coded Allergies: No Known Allergies (Unverified , 11/05/17) COVID-19 Screening Contact w/high risk pt: No Recent Travel to affected area: No Experienced COVID-19 symptoms?: No COVID-19 Testing performed CLIENT STRATEGIST: No Nursing Documentation-PMH Hx Asthma: Yes Review of Systems All Other Systems: negative except mentioned in HPI Physical Exam Vital Signs Date Time Temp Pulse Resp B/P (MAP) Pulse Ox O2 Delivery O2 Flow Rate FiO2 04/09/20 20:06 98.4 78 18 102/65 (77) 98 Room Air General: Awake and alert, no acute distress HEENT: NC/AT. EOMI. Resp: Normal work of breathing Abdomen: Gravid abdomen. Nontender. No masses. Skin: Intact. No abrasions, laceration or rash over the exposed skin MSK: Normal tone and bulk. Moving all extremities. No obvious deformity. Neuro: Awake and alert. Mentating appropriately Medical Decision Making Diagnostic Impression: Primary Impression: Vaginal discharge ER Course 24-year-old female estimated 29 weeks gestation presents for evaluation of persistent vaginal discharge. Patient treated for cervicitis and UTI on last visit. Is an ongoing issue without change for the patient. She has an appoint to see her ZIP[employer] SEWING MACHINE OPERATOR in 2 days. Had plan for repeat urinalysis and swab however the patient declined. She states she now changed her mind about coming to the ER stating that she can just follow-up with her ZIP[employer] SEWING MACHINE OPERATOR in 2 days as scheduled for further testing. Is afebrile and denies any other symptoms at this time. Denies leakage of fluid or vaginal bleeding. Believe she is stable for outpatient follow-up. She has copies of all her labs that she obtained from medical record several days ago to take to her [employer]IP[employer] SEWING MACHINE OPERATOR. Instructed to return with new or worsening symptoms. Last Vital Signs Date Time Temp Pulse Resp B/P (MAP) Pulse Ox O2 Delivery O2 Flow Rate FiO2 04/09/20 20:06 98.4 78 18 102/65 (77) 98 Room Air Disposition: HOME, SELF-CARE Condition: Stable Additional Instructions: Follow-up with ZIP[employer] SEWING MACHINE OPERATOR as scheduled on 04/11. Please follow-up with your primary care doctor in the next 1 to 3 days to discuss this emergency department visit and for reevaluation. If you have any new or worsening symptoms please return to the emergency department for reevaluation. Please note that this report is being documented using [employer] technology. This can lead to erroneous entry secondary to incorrect interpretation by the dictating instrument. Ramo Linder MD Apr 09, 2020 20:27
== END 2020-04-09 20:25 | disposition home or self-care (01) ==
LOC: EMR 20:20
DX: O26.893 Other specified pregnancy related conditions, third trimester (principal); N89.8 Other specified noninflammatory disorders of vagina; Z3A.29 29 weeks gestation of pregnancy; J45.909 Unspecified asthma, uncomplicated
CPT/HCPCS: 99281